=== PATIENT | female | born 1955 | race Caucasian/White ===

== ENCOUNTER → 2021-08-24 | Outpatient (CLI) | payer MEDICARE | LOC: LAB FS 10:54 | PROVIDERS: ATTEND Emergency Medicine | DX: Z01.812 Encounter for preprocedural laboratory examination (principal); Z20.822 Contact with and (suspected) exposure to COVID-19 | CPT/HCPCS: 87635 ==

== ENCOUNTER → 2021-09-07 | Outpatient (CLI) | payer MEDICARE | LOC: LAB FS 10:10 | PROVIDERS: ATTEND Emergency Medicine | DX: Z01.812 Encounter for preprocedural laboratory examination (principal); Z20.822 Contact with and (suspected) exposure to COVID-19 | CPT/HCPCS: 87635 ==

== ENCOUNTER → 2022-06-12 | Outpatient (CLI) | payer MEDICARE, OTHER | LOC: CARD 10:02 | PROVIDERS: ATTEND Nurse Practitioner Family | DX: I08.0 Rheumatic disorders of both mitral and aortic valves (principal) | CPT/HCPCS: 93306 ==

== ENCOUNTER 2023-04-02 20:08 | Emergency (ER) | payer MEDICARE, OTHER ==
[~2023-04-02] VITALS: Ht 165 cm; Wt 79.0 kg
[2023-04-02 20:22] VITALS: BP 143/62
[2023-04-02] MEDS ORDERED: PROMETHAZINE INJ 25 MG/ML (PHENERGAN) AMP IVP STA (20:29)
[2023-04-02] MEDS ORDERED: FAMOTIDINE 20 MG (PEPCID) TABLET PO STA (20:29)
[2023-04-02] MEDS ORDERED: NS IV 1000 ML 1,000 ML IV STA (20:29)
--- NOTE | 2023-04-02 20:41 | ED GI ---
General Chief Complaint: Abdominal/GI Problems Stated Complaint: DIARRHEA FOR A MONTH Nursing Triage Note: Pt presents with c/o diarrhea and GI problems for approx 1 month. She reports she's been to urgent care earlier today, was given zofran and still not feeling well. Pt has had multiple blood tests and stool samples tested without results. She has a colonoscopy scheduled for friday04/08/23. Source of Information: Patient, Family Exam Limitations: No Limitations History of Present Illness Date Seen by Provider: April 02, 2023 Time Seen by Provider: 20:10 Initial Comments 67-year-old female with no pertinent past medical history coming in due to roughly 1 month of nonbloody diarrhea and nausea. Vomiting really started yesterday which is also nonbloody and nonbilious. Went to urgent care earlier today and was given Zofran, but still not feeling well. Has a colonoscopy scheduled for Friday regarding this. Has not had any advanced imaging. Denies any significant abdominal pain associated with this. She does not have her gallbladder but has other abdominal organs. Denies any fever, chest pain, shortness of breath, vaginal bleeding, vaginal discharge, dysuria, urinary frequency, rash, or any other concerns. She denies being on antibiotics within the past several months. Allergies and Home Medications Allergies Coded Allergies: No Known Drug Allergies (Unverified Allergy, Mild, 02/19/10) Patient Home Medication List Home Medication List Reviewed: Yes Review of Systems Review of Systems Constitutional: No fever EENTM: No Symptoms Reported Respiratory: No Symptoms Reported Cardiovascular: No Symptoms Reported Gastrointestinal: See HPI Genitourinary: No Symptoms Reported Musculoskeletal: no symptoms reported Skin: no symptoms reported Psychiatric/Neurological: No Symptoms Reported Endocrine: No Symptoms Reported Hematologic/Lymphatic: No Symptoms Reported Past Phfjfbi-Mjkneb-Vyhkdf Hx Patient Social History Tobacco Use?: No Past Medical History Surgeries: Yes Gallbladder, Orthopedic Reproductive Disorders: No Physical Exam Vital Signs Vital Signs - First Documented 04/02/23 20:22 Temp 38.1 Pulse 98 Resp 16 B/P (MAP) 143/62 (89) Capillary Refill : Height/Weight/BMI Height: '" Weight: lbs. oz. kg; 29.00 BMI Method: General Appearance: WD/WN, no apparent distress HEENT: PERRL/EOMI, pharynx normal, other (Tongue slightly dry) Neck: non-tender, full range of motion, supple, normal inspection Respiratory: chest non-tender, lungs clear, normal breath sounds, no respiratory distress, no accessory muscle use Cardiovascular: regular rate, rhythm, no edema, no murmur Gastrointestinal: normal bowel sounds, non tender, soft; No distended, No guarding, No rebound Extremities: normal range of motion, non-tender, normal inspection, no pedal edema, no calf tenderness, normal capillary refill Back: normal inspection Neurologic/Psychiatric: no motor/sensory deficits, alert, normal mood/affect Skin: normal color, warm/dry Progress/Results/Core Measures Results/Orders Lab Results Laboratory Tests Test 04/02/23 20:45 Range/Units White Blood Count 18.4 H 4.3-11.0 10^3/uL Red Blood Count 4.73 3.80-5.11 10^6/uL Hemoglobin 13.3 11.5-16.0 g/dL Hematocrit 38 35-52 % Mean Corpuscular Volume 81 80-99 fL Mean Corpuscular Hemoglobin 28 25-34 pg Mean Corpuscular Hemoglobin Concent 35 32-36 g/dL Red Cell Distribution Width 13.0 10.0-14.5 % Platelet Count 372 130-400 10^3/uL Mean Platelet Volume 9.5 9.0-12.2 fL Immature Granulocyte % (Auto) 0 % Neutrophils (%) (Auto) 83 H 42-75 % Lymphocytes (%) (Auto) 8 L 12-44 % Monocytes (%) (Auto) 7 0-12 % Eosinophils (%) (Auto) 2 0-10 % Basophils (%) (Auto) 0 0-10 % Neutrophils # (Auto) 15.3 H 1.8-7.8 10^3/uL Lymphocytes # (Auto) 1.4 1.0-4.0 10^3/uL Monocytes # (Auto) 1.3 H 0.0-1.0 10^3/uL Eosinophils # (Auto) 0.3 0.0-0.3 10^3/uL Basophils # (Auto) 0.1 0.0-0.1 10^3/uL Immature Granulocyte # (Auto) 0.1 0.0-0.1 10^3/uL Neutrophils % (Manual) 61 % Lymphocytes % (Manual) 8 % Monocytes % (Manual) 8 % Eosinophils % (Manual) 3 % Band Neutrophils 18 % Atypical Lymphocytes 2 % Platelet Estimate NORMAL Blood Morphology Comment NORMAL Sodium Level 132 L 135-145 MMOL/L Potassium Level 3.6 3.6-5.0 MMOL/L Chloride Level 93 L 98-107 MMOL/L Carbon Dioxide Level 22 21-32 MMOL/L Anion Gap 17 H 5-14 MMOL/L Blood Urea Nitrogen 5 L 7-18 MG/DL Creatinine 0.74 0.60-1.30 MG/DL Estimat Glomerular Filtration Rate 89 BUN/Creatinine Ratio 7 Glucose Level 99 70-105 MG/DL Calcium Level 9.1 8.5-10.1 MG/DL Corrected Calcium 9.7 8.5-10.1 MG/DL Total Bilirubin 0.5 0.1-1.0 MG/DL Aspartate Amino Transf (AST/SGOT) 17 5-34 U/L Alanine Aminotransferase (ALT/SGPT) 13 0-55 U/L Alkaline Phosphatase 76 40-136 U/L Total Protein 6.8 6.4-8.2 GM/DL Albumin 3.3 3.2-4.5 GM/DL Lipase 10 8-78 U/L My Orders Orders - ROSA ARIZA MD Comprehensive Metabolic Panel (04/02/23 20:29) Lipase (04/02/23 20:29) Ed Iv/Invasive Line Start (04/02/23 20:29) Cbc With Automated Diff (04/02/23 20:29) Ct Abdomen/Pelvis W (04/02/23 20:29) Promethazine Injection (Phenergan Injec (04/02/23 20:29) Famotidine Tablet (Pepcid Tablet) (04/02/23 20:29) Ns Iv 1000 Ml (Sodium Chloride 0.9%) (04/02/23 20:29) Iohexol Injection (Omnipaque 350 Mg/Ml 1 (04/02/23 20:45) Received Contrast (Hold Metformin- Contr (04/02/23 20:45) Ns (Ivpb) (Sodium Chloride 0.9% Ivpb Bag (04/02/23 20:45) Manual Differential (04/02/23 20:45) Medications Given in ED Current Medications Medications Dose Ordered Sig/Rohan Route Start Time Stop Time Status Last Admin Dose Admin Iohexol 100 ml ONCE ONCE IV 04/02/23 20:45 04/02/23 20:46 DC 04/02/23 21:47 80 ML Sodium Chloride 100 ml ONCE ONCE IV 04/02/23 20:45 04/02/23 20:46 DC 04/02/23 21:47 100 ML Vital Signs/I&O 04/02/23 20:22 Temp 38.1 Pulse 98 Resp 16 B/P (MAP) 143/62 (89) Blood Pressure Mean: 89 Progress Progress Note : Progress Note 67-year-old female with above history coming in due to diarrhea and vomiting. ABCs were intact and vitals were stable on presentation. Differential includes gastroenteritis versus colitis versus bowel obstruction versus inflammatory bowel disease versus some other etiology. An IV was placed and basic labs were obtained. CT abdomen pelvis also ordered. She was given Phenergan and IV fluids. White blood cell count elevated just above 18,000, normal creatinine, normal LFTs. CT imaging my interpretation with inflammation around the colon. Radiology read consistent with pancolitis. We will start her on Cipro and Flagyl and have her continue to follow-up for her colonoscopy. I believe she is otherwise stable for discharge with outpatient follow-up. She was sent home with strict return precautions Diagnostic Imaging Diagonstic Imaging: CT (abd/pelvis) Comments NAME: KHOI JUARES [facility] REC#: [id number] PT STATUS: REG ER : 1955 PHYSICIAN: ROSA ARIZA MD ADMIT DATE: 04/02/23/ER FS Draft Date of Exam:04/02/23 CT ABDOMEN/PELVIS W EXAMINATION: CT abdomen and pelvis with intravenous contrast. TECHNIQUE: Multiple contiguous axial images were obtained through the abdomen and pelvis after the uneventful administration of intravenous contrast. All CT scans use one or more of the following dose optimizing techniques: automated exposure control, MA and/or KvP adjustment based on patient size and exam type or iterative reconstruction. HISTORY: Abdominal pain. COMPARISON: None available. FINDINGS: The heart is unremarkable. The included lung bases are clear. The liver, spleen, pancreas, adrenal glands and kidneys have a normal appearance. The gallbladder is surgically absent. There is no pathologically enlarged mesenteric or retroperitoneal adenopathy. Bowel wall thickening and hyperemia is seen throughout the entirety of the colon. There is no free fluid or free air. No acute osseous abnormality. There is grade 1 anterolisthesis of L4 on L5. Calcified aortic and iliac atherosclerotic plaque is seen without aneurysm. Ureters and bladder are grossly normal. There is no free air, loculated collection or adenopathy in the pelvis. IMPRESSION: Pancolitis. No free fluid or free air. Recommend correlation with patient history and symptoms and follow-up as indicated. Dictated on workstation # [id number] Dict: 04/02/238 Trans: 04/02/232152 [facility] [id number] Interpreted by: SAPNA PRAKER DO Electronically signed by: Departure Impression Primary Impression: Pancolitis Disposition: HOME, SELF-CARE Condition: Stable Departure-Patient Inst. Decision time for Depature: 22:00 Referrals: HECTOR ROB MD (PCP/Family) Primary Care Physician Patient Instructions: Colitis (DC) Add. Discharge Instructions: Your entire colon is very inflamed and this is called colitis (sometimes it is ulcerative colitis versus Crohn's versus some other cause). The colonoscopy will be able to diagnose why this is happening. We will put you on 2 different antibiotics for the next week as well. Scripts Metronidazole (Metronidazole) 500 Mg Tablet 500 MG PO TID for 7 Days, #21 TAB Prov: ROSA ARIZA MD 04/02/23 Ciprofloxacin HCl (Ciprofloxacin HCl) 500 Mg Tablet 500 MG PO BID for 7 Days, #14 TAB Prov: ROSA ARIZA MD 04/02/23 Work/School Note: Family Work Note Patient Received Medical Care In the Emergency Department On: April 02, 2023 Patient Will Be Able to Return to Work/School On: April 04, 2023 ROSA ARIZA MD April 02, 2023 20:41
[2023-04-02] MEDS ORDERED: IOHEXOL 350 MG/ML 100 ML (OMNIPAQUE 350) VIAL IV ONE (20:45)
[2023-04-02] MEDS ORDERED: HOLD METFORMIN - RECEIVED CONTRAST 20 ML VIAL IV SCH (20:45)
[2023-04-02] MEDS ORDERED: NS 100 ML (IVPB) BAG IV ONE (20:45)
[2023-04-02 20:52] LABS: BASOPHILS # (AUTO) 0.1 10^3/uL (0.0-0.1); BASOPHILS % (AUTO) 0 % (0-10); EOSINOPHILS # (AUTO) 0.3 10^3/uL (0.0-0.3); EOSINOPHILS % (AUTO) 2 % (0-10); HEMATOCRIT 38 % (35-52); HEMOGLOBIN 13.3 g/dL (11.5-16.0); LYMPHOCYTES # (AUTO) 1.4 10^3/uL (1.0-4.0); LYMPHOCYTES % (AUTO) 8 % (12-44); MEAN CORPUSCULAR HEMOGLOBIN 28 pg (25-34); MEAN CORPUSCULAR HGB CONC 35 g/dL (32-36); MEAN CORPUSCULAR VOLUME 81 fL (80-99); MEAN PLATELET VOLUME 9.5 fL (9.0-12.2); MONOCYTES # (AUTO) 1.3 10^3/uL (0.0-1.0); MONOCYTES % (AUTO) 7 % (0-12); NEUTROPHILS # (AUTO) 15.3 10^3/uL (1.8-7.8); NEUTROPHILS % (AUTO) 83 % (42-75); PLATELET COUNT 372 10^3/uL (130-400); WHITE BLOOD COUNT 18.4 10^3/uL (4.3-11.0)
[2023-04-02 21:13] LABS: BAND NEUTROPHILS 18 %; EOSINOPHILS % (MANUAL) 3 %; LYMPHOCYTES % (MANUAL) 8 %; MONOCYTES % (MANUAL) 8 %; NEUTROPHILS % (MANUAL) 61 %
[2023-04-02 21:14] LABS: ATYPICAL LYMPHOCYTES 2 %; PLATELET ESTIMATE NORMAL; RBC MORPH NORMAL
[2023-04-02 21:15] LABS: ALBUMIN 3.3 GM/DL (3.2-4.5); BILIRUBIN,TOTAL 0.5 MG/DL (0.1-1.0); CALCIUM 9.1 MG/DL (8.5-10.1); CREATININE SERUM 0.74 MG/DL (0.60-1.30); POTASSIUM 3.6 MMOL/L (3.6-5.0); TOTAL PROTEIN 6.8 GM/DL (6.4-8.2)
--- NOTE | 2023-04-02 21:53 | Diagnostic Imaging Report ---
EXAMINATION: CT abdomen and pelvis with intravenous contrast. TECHNIQUE: Multiple contiguous axial images were obtained through the abdomen and pelvis after the uneventful administration of intravenous contrast. All CT scans use one or more of the following dose optimizing techniques: automated exposure control, MA and/or KvP adjustment based on patient size and exam type or iterative reconstruction. HISTORY: Abdominal pain. COMPARISON: None available. FINDINGS: The heart is unremarkable. The included lung bases are clear. The liver, spleen, pancreas, adrenal glands and kidneys have a normal appearance. The gallbladder is surgically absent. There is no pathologically enlarged mesenteric or retroperitoneal adenopathy. Bowel wall thickening and hyperemia is seen throughout the entirety of the colon. There is no free fluid or free air. No acute osseous abnormality. There is grade 1 anterolisthesis of L4 on L5. Calcified aortic and iliac atherosclerotic plaque is seen without aneurysm. Ureters and bladder are grossly normal. There is no free air, loculated collection or adenopathy in the pelvis. IMPRESSION: Pancolitis. No free fluid or free air. Recommend correlation with patient history and symptoms and follow-up as indicated. Dictated by: Dictated on workstation # [id number]
[2023-04-02] MEDS ORDERED: metroNIDAZOLE 500 MG (FLAGYL) TAB PO STA (22:02)
[2023-04-02] MEDS ORDERED: METR-145 PO (22:02)
[2023-04-02] MEDS ORDERED: CIPROFLOXACIN 500 MG (CIPRO) TABLET PO STA (22:02)
[2023-04-02] MEDS ORDERED: CIPR500T5 PO (22:02)
== END 2023-04-02 22:19 | disposition home or self-care (01) ==
LOC: EDUNIT# 20:08 → ER FS 20:09
DX: K51.00 Ulcerative (chronic) pancolitis without complications (principal)
CPT/HCPCS: 36415; 74177; 80053; 83690; 85007; 85027; Q9967